=== PATIENT | female | born 1980 | race Asian ===

== ENCOUNTER 2017-01-05 13:49 | Emergency (ER) | payer OTHER ==
[~2017-01-05] VITALS: Ht 162.6 cm; Wt 71.4 kg
[~2017-01-05 13:49] MED LIST: FOLI1TAB7 PO; MTR600X PO; OXYC5TAB PO; PRENTAB26 PO
[2017-01-05 13:54] VITALS: TEMP 36.3; Ht 162.6 cm; Wt 71.4 kg
[2017-01-05] MEDS ORDERED: ONDANSETRON INJ 2 MG/ML 2 ML VIAL IV STA (14:25)
[2017-01-05] MEDS ORDERED: OPTIRAY 320 IV PRN (14:45)
[2017-01-05 15:09] LABS: BASO % 0.1 %; BASO ABS # 0.01 K/uL (0-0.2); COMPLETE YES; EOS % 0.4 %; IG% 0.1 %; LYMPH % 29.6 %; LYMPH ABS # 2.34 K/uL (1.2-3.4); MEAN CELL VOLUME 89.2 fL (80-100); MEAN CORPUSCULAR HEMOGLOBIN 30.2 pg (25-34); MEAN CORPUSCULAR HGB CONC 33.8 g/dl (32-36); MEAN PLATELET VOLUME 9.3 fL (7.4-10.4); MONO % 5.4 %; NEUT % 64.4 %; PLATELET COUNT 357 K/uL (130-400); RED BLOOD COUNT 4.37 M/uL (4.2-5.4)
[2017-01-05] MEDS ORDERED: ACET-1256 PO (15:09)
[2017-01-05 15:13] LABS: URINE APPEARANCE CLEAR (CLEAR); URINE BILIRUBIN NEG (NEG); URINE COLOR YELLOW; URINE NITRITE NEG (NEG); URINE SPECIFIC GRAVITY 1.011 (1.000-1.030); UROBILINOGEN NEG (NEG)
[2017-01-05 15:16] LABS: MANUAL MICROSCOPIC REQUIRED? NO; REVIEW REQ? NO
[2017-01-05 15:27] LABS: ALT/SGPT 20 U/L (12-78); AST/SGOT 8 U/L (15-37); BLOOD UREA NITROGEN 10 mg/dl (7-18); BUN/CREATININE RATIO 15.8 (10-20); CALCIUM 8.8 mg/dl (8.5-10.1); CARBON DIOXIDE 29 mmol/L (21-32); CHLORIDE 103 mmol/L (98-107); CREATININE 0.61 mg/dl (0.60-1.20); GLUCOSE 116 mg/dl (70-99); POTASSIUM 3.9 mmol/L (3.5-5.1); SODIUM 140 mmol/L (136-145)
[2017-01-05 15:30] LABS: ALKALINE PHOSPHATASE 66 U/L (45-117)
--- NOTE | 2017-01-05 17:42 | DIAGNOSTIC IMAGING REPORT ---
ABDOMEN AND PELVIS CT WITH IV AND ORAL CONTRAST CT DOSE: 390.35 mGy.cm HISTORY: Pain eval for dandy TECHNIQUE: Multiaxial CT images of the abdomen and pelvis were performed following the use of intravenous and oral contrast. COMPARISON STUDY: None. FINDINGS: Slight bibasilar interstitial prominence. Liver spleen and pancreas are unremarkable. Kidneys enhance uniformly. The appendix is retrocecal in location. It appears to be unremarkable. Bowel pattern is nonobstructive. There is increased fecal load throughout the entire colon. There is a peripherally calcified lower uterine segment fibroid measuring 5 cm. There is a 1.5 cm left ovarian cyst. There are several small right ovarian follicular cyst. Uterus is anteflexed. Bladder is midline. There are mild nonspecific infiltrative changes of the fat anterior and superior to the symphysis pubis possibly postoperative or potentially related to a subcutaneous soft tissue contusion. IMPRESSION: 1. Normal appendix. 2. Increased fecal content within the colon consistent with a component of fecal stasis. 3. 5 cm uterine fibroid. 6. Small bilateral ovarian cysts. 7. Soft tissue contusion versus nonspecific infiltrative change subcutaneous fat the anterior pelvic wall. Electronically signed by: Erik King M.D. 01/05/2017 5:41 PM Dictated Date/Time: 01/05/2017 5:37 PM
[2017-01-05 18:19] VITALS: BP 109/72; PULSE 58; O2SAT 100
--- NOTE | 2017-01-05 20:01 | EMERGENCY ROOM VISIT NOTE ---
History Report prepared by Jennifer: Hawa Guerrier Under the Supervision of: Dr. Suresh Pedersen M.D. First contact with patient: 14:18 Chief Complaint: ABDOMINAL PAIN Stated Complaint: STOMACH-LOWER RIGHT CORNER Nursing Triage Summary: pt c/o rlq pain started last night, feels nauseted. went to urgent care sent here to r/o appy History of Present Illness The patient is a 36 year old female who presents to the Emergency Room with complaints of constant right lower quadrant abdominal pain beginning last night. The patient's states that she has a history of 2 c-sections and notes that she still has her appendix. The patient complains of nausea, transient dizziness, and chills. She denies any vomiting, fever, urinary symptoms, and diarrhea. She reports that moving around and laughing worsens her pain. Source of History: patient Onset: last night Position: abdomen (RLQ) Timing: constant Modifying Factors (Worsening): movement, other (laughing) Associated Symptoms: + chills, + nausea, No diarrhea, No fevers, No urinary symptoms, No vomiting Note: The patient complains of dizziness. Review of Systems See HPI for pertinent positives & negatives. A total of 10 systems reviewed and were otherwise negative. Past Medical & Surgical Surgical Problems: (1) H/O section Family History No pertinent family history stated. Social History Smoking Status: Never Smoker Marital Status: Housing Status: lives with family Current/Historical Medications Scheduled Acetaminophen (Tylenol), 1,000 MG PO DIRECTED Allergies Coded Allergies: No Known Allergies (Unverified , 01/05/17) Physical Exam Vital Signs Date Time Temp Pulse Resp B/P Pulse Ox O2 Delivery O2 Flow Rate FiO2 01/05/17 18:19 58 20 109/72 100 01/05/17 15:44 66 16 105/65 100 01/05/17 13:54 36.3 66 18 101/67 96 Room Air Physical Exam Constitutional: Vital signs reviewed. Eyes: Pupils are equal round reactive to light. Conjunctiva are noninjected. ENT: Pharynx is clear without erythema or exudate. Mucous membranes are moist. Neck supple without meningeal signs. Respiratory: Clear to auscultation bilaterally. Breath sounds are equal bilaterally. Cardiovascular: Regular rate and rhythm. No rubs or gallops. GI: Soft, nondistended. Bowel sounds are present. Right suprapubic tenderness, no guarding. Musculoskeletal: No peripheral edema. No CVA tenderness. Integumentary: No cyanosis. Neurological: The patient is awake and alert. No focal deficits. Psychiatric: Normal affect. Medical Decision & Procedures ER Provider Diagnostic Interpretation: CT results as stated below per my review and radiologist interpretation. ABDOMEN AND PELVIS CT WITH IV AND ORAL CONTRAST FINDINGS: Slight bibasilar interstitial prominence. Liver spleen and pancreas are unremarkable. Kidneys enhance uniformly. The appendix is retrocecal in location. It appears to be unremarkable. Bowel pattern is nonobstructive. There is increased fecal load throughout the entire colon. There is a peripherally calcified lower uterine segment fibroid measuring 5 cm. There is a 1.5 cm left ovarian cyst. There are several small right ovarian follicular cyst. Uterus is anteflexed. Bladder is midline. There are mild nonspecific infiltrative changes of the fat anterior and superior to the symphysis pubis possibly postoperative or potentially related to a subcutaneous soft tissue contusion. IMPRESSION: 1. Normal appendix. 2. Increased fecal content within the colon consistent with a component of fecal stasis. 3. 5 cm uterine fibroid. 6. Small bilateral ovarian cysts. 7. Soft tissue contusion versus nonspecific infiltrative change subcutaneous fat the anterior pelvic wall. Electronically signed by: Erik King M.D. 01/05/2017 5:41 PM Dictated Date/Time: 01/05/2017 5:37 PM Laboratory Results 01/05/17 14:57 Red Blood Count 4.37, Mean Corpuscular Volume 89.2, Mean Corpuscular Hemoglobin 30.2, Mean Corpuscular Hemoglobin Concent 33.8, Mean Platelet Volume 9.3, Neutrophils (%) (Auto) 64.4, Lymphocytes (%) (Auto) 29.6, Monocytes (%) (Auto) 5.4, Eosinophils (%) (Auto) 0.4, Basophils (%) (Auto) 0.1, Neutrophils # (Auto) 5.08, Lymphocytes # (Auto) 2.34, Monocytes # (Auto) 0.43, Eosinophils # (Auto) 0.03, Basophils # (Auto) 0.01 01/05/17 14:57 Test 01/05/17 14:50 01/05/17 14:57 Urine Color YELLOW Urine Appearance CLEAR (CLEAR) Urine pH 7.0 (4.5-7.5) Urine Specific [place] 1.011 (1.000-1.030) Urine Protein NEG (NEG) Urine Glucose (UA) NEG (NEG) Urine Ketones NEG (NEG) Urine Occult Blood NEG (NEG) Urine Nitrite NEG (NEG) Urine Bilirubin NEG (NEG) Urine Urobilinogen NEG (NEG) Urine Leukocyte Esterase NEG (NEG) Urine Test NEG (NEG) White Blood Count 7.90 K/uL (4.8-10.8) Red Blood Count 4.37 M/uL (4.2-5.4) Hemoglobin 13.2 g/dL (12.0-16.0) Hematocrit 39.0 % (37-47) Mean Corpuscular Volume 89.2 fL (80-100) Mean Corpuscular Hemoglobin 30.2 pg (25-34) Mean Corpuscular Hemoglobin Concent 33.8 g/dl (32-36) Platelet Count 357 K/uL (130-400) Mean Platelet Volume 9.3 fL (7.4-10.4) Neutrophils (%) (Auto) 64.4 % Lymphocytes (%) (Auto) 29.6 % Monocytes (%) (Auto) 5.4 % Eosinophils (%) (Auto) 0.4 % Basophils (%) (Auto) 0.1 % Neutrophils # (Auto) 5.08 K/uL (1.4-6.5) Lymphocytes # (Auto) 2.34 K/uL (1.2-3.4) Monocytes # (Auto) 0.43 K/uL (0.11-0.59) Eosinophils # (Auto) 0.03 K/uL (0-0.5) Basophils # (Auto) 0.01 K/uL (0-0.2) RDW Standard Deviation 42.7 fL (36.4-46.3) RDW Coefficient of Variation 13.2 % (11.5-14.5) Immature Granulocyte % (Auto) 0.1 % Immature Granulocyte # (Auto) 0.01 K/uL (0.00-0.02) Anion Gap 8.0 mmol/L (3-11) Est Creatinine Clear Calc Drug Dose 126.0 ml/min Estimated GFR () 137.1 Estimated GFR (Non- 118.3 BUN/Creatinine Ratio 15.8 (10-20) Calcium Level 8.8 mg/dl (8.5-10.1) Total Bilirubin 0.3 mg/dl (0.2-1) Direct Bilirubin < 0.1 mg/dl (0-0.2) Aspartate Amino Transf (AST/SGOT) 8 U/L (15-37) Alanine Aminotransferase (ALT/SGPT) 20 U/L (12-78) Alkaline Phosphatase 66 U/L (45-117) Total Protein 7.6 gm/dl (6.4-8.2) Albumin 4.0 gm/dl (3.4-5.0) Lipase 123 U/L (73-393) Laboratory results as reviewed by me. Medications Administered Medications (Trade) Dose Ordered Sig/Ana Route Start Time Stop Time Status Last Admin Dose Admin Ondansetron HCl (Zofran Inj) 4 mg NOW STAT IV 01/05/17 14:25 01/05/17 14:26 DC 01/05/17 15:10 4 MG ED Course 1418: The patient was evaluated in room C4. A complete history and physical exam was performed. 1425: Zofran Inj 4mg IV. 1749: I discussed the test results with the patient. She knew about the fibroid but not about the cysts. 1800: Upon reevaluation, the patient appeared to have improvement of her symptoms. I discussed emerson's findings with the patient. She verbalized agreement of the treatment plan. The patient was discharged home. Medical Decision This is a 36-year-old female who presents with right-sided abdominal pain. Differential diagnosis includes appendicitis, perforation, ectopic , ovarian cyst, uterine fibroid, irritable bowel syndrome. I did perform a limited focused review of portions of the patient's old chart on the electronic medical record. The patient has had no recent pertinent visits to this hospital. I did evaluate the patient as noted above. The patient is presenting with right -sided abdominal pain. She was sent here for concern of appendicitis. She is tender in the right pelvic region but not at McBurney's point. IV access was established. She was treated with Zofran IV. She declined any pain medicine. I did order and personally review the patient's urinalysis as described above. test is negative. I did order and review the patient's blood work as noted in the electronic medical record. Her white blood cell count is not elevated. I did order a CT of the abdomen and pelvis. I did review the images myself as well as the radiology report as described above. She has no signs of appendicitis. She does have a uterine fibroid which she knows about. She also has bilateral ovarian cysts. She has some postoperative changes in the anterior pelvic wall from her . I did discuss the test results with the patient and her . She is not having any significant pain at this time. 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 She was discharged in good condition. Impression Primary Impression: Lower abdominal pain Additional Impressions: Bilateral ovarian cysts Uterine fibroid Scribe Attestation The scribe's documentation has been prepared under my direct and personally reviewed by me in its entirety. I confirm that the note above accurately reflects all work, treatment, procedures, and medical decision making performed by me. Departure Information Dispostion Home / Self-Care Referrals Rj Demarco M.D. (PCP) Forms Call Back Authorization, HOME CARE DOCUMENTATION FORM, IMPORTANT VISIT INFORMATION Patient Instructions ED Cyst Ovarian, ED Fibroids, My [facility] Additional Instructions You have been examined and treated today on an emergency basis only. This is not a substitute for, or an effort to provide, complete comprehensive medical care. It is impossible to recognize and treat all injuries or illnesses in a single emergency department visit. It is therefore important that you follow up closely with your HARP REPAIRER doctor. Call as soon as possible for an appointment. Return for worsening symptoms or if you develop fever, vomiting, or any other concerning symptoms. Problem Qualifiers
== END 2017-01-05 18:19 | disposition home or self-care (01) ==
LOC: C.EDB 13:51 → C.EDC 18:19
DX: R10.31 Right lower quadrant pain (principal); N83.201 Unspecified ovarian cyst, right side; N83.202 Unspecified ovarian cyst, left side; D25.9 Leiomyoma of uterus, unspecified; R11.0 Nausea